=== PATIENT | male | born 1950 | race Caucasian/White ===

== ENCOUNTER 2024-09-12 11:55 | Outpatient (RCR) | payer MEDICARE, SELFPAY ==
[2024-09-12 12:51] LABS: Creatinine* 1.4 mg/dL (0.5-1.5); Est. Creatinine Clearance* 49.25; Estimated Glomerular Filt Rate 53 ml/min
== END 2025-03-11 23:59 | disposition home or self-care (01) ==
LOC: CCIC 11:55
PROVIDERS: Nurse Practitioner; Visit Provider Clinical Nurse Specialist
DX: C61 Malignant neoplasm of prostate (principal)
CPT/HCPCS: 36415; 82565; 99211

== ENCOUNTER 2024-09-12 13:35 | Outpatient (CLI) | payer MEDICARE, SELFPAY | END 2024-09-12 13:36 | disposition home or self-care (01) | LOC: MRI 13:36 | PROVIDERS: Visit Provider Internal Medicine | DX: C61 Malignant neoplasm of prostate (principal) | CPT/HCPCS: 72195 ==